=== PATIENT | female | born 1960 | race Hispanic/Latino ===

== ENCOUNTER → 2022-05-12 | Outpatient (CLI) | payer MEDICAID ==
[~2022-05-12] MED LIST: ADV250 IH; ATOR10 PO; CETRIZINE PO; ESOM40CA PO; MOME17N NASAL; MONT-39 PO; TAMO20TA4 PO; VENL75TA89 PO
== END | disposition home or self-care (01) ==
LOC: SHCH 10:50
PROVIDERS: ATTEND Internal Medicine Cardiovascular Disease
DX: R07.9 Chest pain, unspecified (principal); I10 Essential (primary) hypertension
CPT/HCPCS: 93306

== ENCOUNTER → 2022-05-26 | Outpatient (CLI) | payer OTHER | END | disposition home or self-care (01) | LOC: RAH 12:54 | PROVIDERS: ATTEND Internal Medicine Cardiovascular Disease | DX: Z13.6 Encounter for screening for cardiovascular disorders (principal) | CPT/HCPCS: 75571 ==